=== PATIENT | male | born 1985 | race Caucasian/White ===

== ENCOUNTER 2019-12-29 09:45 | Emergency (ER) | payer SELFPAY ==
[~2019-12-29] VITALS: Ht 172.7 cm; Wt 91.0 kg
[2019-12-29] MEDS: IV NORMAL SALINE 1000ML BAG 1,000 ML IV ONE (10:41)
[2019-12-29] MEDS ORDERED: LORazepam 1 MG TABLET ONE (10:41)
[2019-12-29] MEDS: LORazepam 1 MG TABLET PO ONE (10:43)
[2019-12-29 10:46] LABS: BASO % 0 % (0-3); EOS % 0 % (0-3); HEMATOCRIT 48.5 % (39.0-53.0); HEMOGLOBIN 16.7 g/dL (13.0-17.5); LYMPH # 1.2 x10^3/uL (1.0-4.8); LYMPH % 12 % (24-48); MEAN CORPUSCULAR HEMOGLOBIN 30 pg (25-35); MEAN CORPUSCULAR HGB CONC 35 g/dL (31-37); MEAN CORPUSCULAR VOLUME 87 fL (79-100); MONO # 0.6 x10^3/uL (0.0-1.1); MONO % 6 % (0-9); NEUT # 8.2 x10^3/uL (1.8-7.7); NEUT % 82 % (31-73); PLATELET COUNT 292 x10^3/uL (140-400); RED BLOOD COUNT 5.58 x10^6/uL (4.30-5.70); RED CELL DISTRIBUTION WIDTH 13.2 % (11.5-14.5)
--- NOTE | 2019-12-29 11:01 | RAD ---
AP chest. HISTORY: Short of breath AP view was taken of the chest. Lungs are clear. Heart is normal in size. There is no pleural effusion. IMPRESSION: 1. No acute chest disease. Electronically signed by: Ashwin Darling MD (12/29/2019 10:59 AM) [id number]
[2019-12-29 11:16] LABS: ETHANOL < 10 mg/dL (0-10); SALIC 5.6 mg/dL (2.8-20.0)
[2019-12-29 11:17] LABS: ACETAMIN < 2 mcg/ml (10-30)
[2019-12-29 11:25] LABS: CALCIUM 8.7 mg/dL (8.5-10.1); CREATININE 1.2 mg/dL (0.7-1.3); GFR 69.7; POTASSIUM 4.1 mmol/L (3.5-5.1)
--- NOTE | 2019-12-29 11:28 | PHYS DOC ---
Past Medical History Past Medical History: Hypertension Past Surgical History: Tonsillectomy Smoking Status: Current Every Day Smoker Alcohol Use: Occasionally Drug Use: None General Adult EDM: Chief Complaint: SHORTNESS OF BREATH HPI: HPI: The history was obtained from the patient. Patient is a 34-year-old male with PMH hypertension who presents with a chief complaint of shortness of breath. Patient states yesterday evening he had a few episodes of loose stool. He states that due to some abdominal discomfort he took 2 tablets of what he thought was ibuprofen at home. He states he woke up this morning feeling similarly and took an additional tablet of what he thought was ibuprofen. He states he learned just prior to arrival that is actually his sertraline. These are 100 mg tablets per the patient. He states after taking the tablets he felt very short of breath and jittery. He noted tingling sensation in his hands and feet. He did note chest pain that lasted approximately 3 seconds and resolved on its own prior to arrival. 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 He did note some bilateral leg cramping recently. Denies any syncope. Does note a mild cough but states this is not unusual. Denies any alcohol usage. Denies any drug usage. Denies any abdominal pain. He states that his shortness of breath has improved sign ificantly since arrival to the emergency department. He states he did not take these tablets in an attempt to harm himself he merely thought they were ibuprofen. No other complaints. Review of Systems: Review of Systems: Constitutional: Denies fever or chills. [] Eyes: Denies change in visual acuity. [] HENT: Denies nasal congestion or sore throat. [] Respiratory: Positive for shortness of breath Cardiovascular: Denies chest pain or edema. [] GI: Positive for loose stool : Denies dysuria. [] Musculoskeletal: Denies back pain or joint pain. [] Integument: Denies rash. [] Neurologic: Denies headache, focal weakness or sensory changes. [] Endocrine: Denies polyuria or polydipsia. [] Lymphatic: Denies swollen glands. [] Psychiatric: Denies depression or anxiety. [] Heart Score: Risk Factors: Risk Factors: DM, Current or recent (<one month) smoker, HTN, HLP, family history of CAD, obesity. Risk Scores: Score 0 - 3: 2.5% MACE over next 6 weeks - Discharge Home Score 4 - 6: 20.3% MACE over next 6 weeks - Admit for Clinical Observation Score 7 - 10: 72.7% MACE over next 6 weeks - Early Invasive Strategies Current Medications: Current Medications Medications (Trade) Dose Ordered Sig/Isaías Start Time Stop Time Status Last Admin Dose Admin Info (CONTRAST GIVEN -- Rx MONITORING) 1 each PRN DAILY PRN 12/29/19 11:30 12/31/19 11:29 Iohexol (Omnipaque 350 Mg/ml) 100 ml 1X ONCE 12/29/19 11:30 12/29/19 11:31 Lorazepam (Ativan) 1 mg STK-MED ONCE 12/29/19 10:41 12/29/19 10:41 DC Sodium Chloride 1,000 ml @ 1,000 mls/hr 1X ONCE 12/29/19 10:45 12/29/19 11:44 12/29/19 10:41 1,000 MLS/HR Allergies: Allergies: Allergies Uncoded Allergies Type Severity Reaction Last Updated Verified Z-pack Allergy Severe sob 05/08/15 Physical Exam: PE: Constitutional: Well developed, well nourished, no acute distress, non-toxic appearance. [] HENT: Normocephalic, atraumatic, bilateral external ears normal, oropharynx moist, no oral exudates, nose normal. [] Eyes: PERRLA, EOMI, conjunctiva normal, no discharge. [] Neck: Normal range of motion, no tenderness, supple, no stridor. [] Cardiovascular:Heart rate regular rhythm, no murmur [] Lungs & Thorax: Bilateral breath sounds clear to auscultation [] Abdomen: Bowel sounds normal, soft, no tenderness, no masses, no pulsatile masses. [] Skin: Warm, dry, no erythema, no rash. [] Back: No tenderness, no CVA tenderness. [] Extremities: No tenderness, no cyanosis, no clubbing, ROM intact, no edema. [] Neurologic: Alert and oriented X 3, normal motor function, normal sensory function, no focal deficits noted. [] Psychologic: Affect normal, judgement normal, mood normal. [] Current Patient Data: Labs: Laboratory Tests Test 12/29/19 10:32 White Blood Count 10.0 x10^3/uL (4.0-11.0) Red Blood Count 5.58 x10^6/uL (4.30-5.70) Hemoglobin 16.7 g/dL (13.0-17.5) Hematocrit 48.5 % (39.0-53.0) Mean Corpuscular Volume 87 fL (79-100) Mean Corpuscular Hemoglobin 30 pg (25-35) Mean Corpuscular Hemoglobin Concent 35 g/dL (31-37) Red Cell Distribution Width 13.2 % (11.5-14.5) Platelet Count 292 x10^3/uL (140-400) Neutrophils (%) (Auto) 82 % (31-73) H Lymphocytes (%) (Auto) 12 % (24-48) L Monocytes (%) (Auto) 6 % (0-9) Eosinophils (%) (Auto) 0 % (0-3) Basophils (%) (Auto) 0 % (0-3) Neutrophils # (Auto) 8.2 x10^3/uL (1.8-7.7) H Lymphocytes # (Auto) 1.2 x10^3/uL (1.0-4.8) Monocytes # (Auto) 0.6 x10^3/uL (0.0-1.1) Eosinophils # (Auto) 0.0 x10^3/uL (0.0-0.7) Basophils # (Auto) 0.0 x10^3/uL (0.0-0.2) Salicylates Level 5.6 mg/dL (2.8-20.0) Salicylate Last Dose Date Unknown Salicylate Last Dose Time Unknown Acetaminophen Level < 2 mcg/ml (10-30) L Acetaminophen Last Dose Date Unknown Acetaminophen Last Dose Time Unknown Ethyl Alcohol Level < 10 mg/dL (0-10) Laboratory Tests 12/29/19 10:32 Vital Signs: Vital Signs Date Time Temp Pulse Resp B/P (MAP) Pulse Ox O2 Delivery O2 Flow Rate FiO2 12/29/19 10:55 66 22 168/104 (125) 100 Room Air EKG: EKG: EKG consistent with normal sinus rhythm. Ventricular rate is 62 bpm. [place] norm al. Intervals normal. No acute ischemic changes appreciated. Normal EKG. [] Radiology/Procedures: Radiology/Procedures: [][facility] [address] [place] [address] IMAGING REPORT Signed PATIENT: MANUELA GARCIA ACCOUNT: [id number] : 1985 LOCATION: ER AGE: 34 SEX: M EXAM STATUS: REG ER ORD. PHYSICIAN: MIN PACE DO REASON: Shortness of air r/o PE PROCEDURE: CT ANGIOGRAPHY CHEST CT ANGIOGRAPHY CHEST INDICATION: Reason: Shortness of air, PE Comparison: Chest radiograph 10/13/2019. TECHNIQUE: Following the uneventful administration of intravenous contrast, 100 cc Omnipaque 350, axial CT sections were obtained through the lungs and upper abdomen. Multiplanar reconstructions and MIP images were obtained. PQRS compliance statement: One or more of the following individualized dose reduction techniques were utilized for this examination: 1. Automated exposure control 2. Adjustment of the mA and/or kV according to patient size 3. Use of iterative reconstruction technique FINDINGS: Pulmonary arteries: No evidence of pulmonary thrombolic disease. Lungs and Airways: No pulmonary mass or consolidation. No abnormality of the central airways. Pleura: The pleural spaces are normal. Heart and Mediastinum: The visualized thyroid is normal in size and attenuation. No axillary or supraclavicular lymphadenopathy. No mediastinal, hilar or retrocrural lymphadenopathy. The heart and pericardium are within normal limits. The great vessels of the thorax are normal. Abdomen: Limited images through the upper abdomen show no abnormality of the visualized organs. Bones and Soft Tissues: The visualized bones and chest wall soft tissues are within normal limits. IMPRESSION: 1. No evidence of pulmonary thromboembolic disease. 2. No pulmonary mass or consolidation Electronically signed by: Antonette Mcleod MD (12/29/2019 12:09 PM) [id number] DICTATED and SIGNED BY: ANTONETTE MCLEOD MD DATE: 12/29/191208 Course & Med Decision Making: Course & Med Decision Making Pertinent Labs and Imaging studies reviewed. (See chart for details) Patient is an overall well-appearing 34-year-old male who presents with chief complaint of shortness of breath and some lightheadedness. Initial vital signs grossly unremarkable. EKG normal. Given the patient does report a history of driving long distances frequently and recently CT PE study was obtained. This was negative for acute pulmonary emboli. Basic labs were obtained and were un remarkable. Toxicology screen was obtained given the patient's report of accidentally taking sertraline. This was negative. Negative alcohol level. Patient was able to urinate without difficulty in the emergency department. He was able to ambulate without symptoms. Overall due to the patient is appropriate for discharge home. We will suspicion for ACS. CT PE study negative. Given the reported amount of sertraline ingested I do have very low suspicion for toxicity. Furthermore, his vitals are not consistent with a serotonin syndrome or toxicity. Patient does feel comfortable going home and self monitoring. I did offer COVID testing to which the patient declined. He was counseled on appropriate medication usage. Return precautions discussed and understood. Instructed to follow-up with his primary care physician in the next 2 to 3 days. Stable for discharge. COVID-19 CRITERIA: The patient was evaluated during the global COVID-19 pandemic, and that diagnosis was suspected/considered upon their initial presentation. Their evaluation, treatment and testing was consistent with current guidelines for patients who present with complaints or symptoms that may be related to COVID-19. Javed Disclaimer: Javed Disclaimer: This electronic medical record was generated, in whole or in part, using a voice recognition dictation system. Departure Departure Impression: Primary Impression: Accidental drug ingestion Qualified Codes: T50.901A - Poisoning by unspecified drugs, medicaments and biological substances, accidental (unintentional), initial encounter Additional Impression: Shortness of breath Disposition: 01 HOME, SELF-CARE Condition: GOOD Referrals: NO PCP (PCP) Patient Instructions: Shortness of Breath Additional Instructions: [facility] [address] [place] [address] [facility] [address] [place] [address] [facility] [address] [facility] [place] [address] [facility] [address] [place] [address] [facility] [address] [place] [address] [facility] [address] [place] [address] [address] [place] [address] [facility] [address] [place] [address] [facility] [address] [place] [address] [facility] [address] [place] [address] Justicifation of Admission Dx: Justifications for Admission: Justification of Admission Dx: N/A MIN PACE DO Dec 29, 2019 11:28
[2019-12-29] MEDS ORDERED: CONTRAST GIVEN. MC PRN (11:30)
[2019-12-29] MEDS: IOHEXOL 350 MG/ML 100 ML VIAL. IV ONE (11:48)
--- NOTE | 2019-12-29 12:12 | RAD ---
CT ANGIOGRAPHY CHEST INDICATION: Reason: Shortness of air, PE Comparison: Chest radiograph 10/13/2019. TECHNIQUE: Following the uneventful administration of intravenous contrast, 100 cc Omnipaque 350, axial CT sections were obtained through the lungs and upper abdomen. Multiplanar reconstructions and MIP images were obtained. PQRS compliance statement: One or more of the following individualized dose reduction techniques were utilized for this examination: 1. Automated exposure control 2. Adjustment of the mA and/or kV according to patient size 3. Use of iterative reconstruction technique FINDINGS: Pulmonary arteries: No evidence of pulmonary thrombolic disease. Lungs and Airways: No pulmonary mass or consolidation. No abnormality of the central airways. Pleura: The pleural spaces are normal. Heart and Mediastinum: The visualized thyroid is normal in size and attenuation. No axillary or supraclavicular lymphadenopathy. No mediastinal, hilar or retrocrural lymphadenopathy. The heart and pericardium are within normal limits. The great vessels of the thorax are normal. Abdomen: Limited images through the upper abdomen show no abnormality of the visualized organs. Bones and Soft Tissues: The visualized bones and chest wall soft tissues are within normal limits. IMPRESSION: 1. No evidence of pulmonary thromboembolic disease. 2. No pulmonary mass or consolidation Electronically signed by: Dane Mcleod MD (12/29/2019 12:09 PM) [id number]
[2019-12-29 12:30] VITALS: BP 165/98
--- NOTE | 2019-12-29 12:38 | RAD ---
Exam: VENOUS LOWER EXT BILATERAL Indication: b/l leg swelling/sob Technique: Color-flow and pulsed wave duplex ultrasound with compression of venous structures of the bilateral lower extremities. Comparison: None Available. Findings: Duplex ultrasound with compression of the deep venous structures of the bilateral lower extremities from the common femoral vein through the popliteal vein is negative for DVT. The posterior tibial and peroneal veins are segmentally visualized and patent where seen. Normal venous waveforms and augmentation are noted throughout. Impression: No evidence for DVT in the bilateral lower extremities. Electronically signed by: Dane Mcleod MD (12/29/2019 12:36 PM) [id number]
[2019-12-29 12:39] LABS: BARBITURATES NEG (NEG); BENZODIAZEPINES NEG (NEG); CANNABINOIDS NEG (NEG); COCAINE NEG (NEG); METHADONE NEG (NEG); OPIATES NEG (NEG); PHENCYCLIDINE NEG (NEG)
[2019-12-29 12:40] LABS: AMPHETAMINE/METHAMPHETAMINE NEG (NEG)
--- NOTE | 2019-12-29 14:21 | EKG ---
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
== END 2019-12-29 13:09 | disposition home or self-care (01) ==
LOC: ER 09:45
DX: T43.225A Adverse effect of selective serotonin reuptake inhibitors, initial encounter (principal); R06.02 Shortness of breath; R19.7 Diarrhea, unspecified; R20.2 Paresthesia of skin; R42 Dizziness and giddiness; I10 Essential (primary) hypertension; F17.200 Nicotine dependence, unspecified, uncomplicated; Z90.89 Acquired absence of other organs; Z88.8 Allergy status to other drugs, medicaments and biological substances; Y92.89 Other specified places as the place of occurrence of the external cause
CPT/HCPCS: 36415; 71045; 71275; 80048; 80307; 80329; 84443; 85025; 93005; 93970; 96360; 99285; G0480; J7030; Q9967